=== PATIENT | male | born 1995 | race Caucasian/White ===

== ENCOUNTER 2017-01-29 18:32 | Emergency (ER) | payer OTHER ==
[2017-01-29] MEDS ORDERED: CYCLOBENZAPRINE10 M1 PO (18:47)
[2017-01-29] MEDS ORDERED: PERCOCET 5-3251 EACH PO (18:47)
[2017-01-29] MEDS ORDERED: IBUPROFEN800 M1 PO (18:47)
[2017-01-30] MEDS ORDERED: NORCO 7.5-3251 EACH PO (00:40)
[2017-02-22] MEDS ORDERED: BUSPIRONE HCL10 M2 PO (22:17)
[2017-02-22] MEDS ORDERED: HYDROXYZINE HCL25 M1 PO (22:18)
[2017-02-22] MEDS ORDERED: ZOLOFT100 M1 PO (22:18)
[2017-02-22] MEDS ORDERED: PRAZOSIN HCL2 M2 PO (22:19)
[2017-02-22] MEDS ORDERED: MELATONIN5 M5 PO (22:20)
== END 2017-01-30 00:51 ==
LOC: EDMED 18:32
DX: M54.9 Dorsalgia, unspecified (principal); M51.34 Other intervertebral disc degeneration, thoracic region
CPT/HCPCS: J1170